=== PATIENT | male | born 1965 | race Caucasian/White ===

== ENCOUNTER → 2019-02-02 | Outpatient (CLI) | payer BC, OTHER ==
[2019-02-02 16:41] LABS: CALCIUM 9.6 mg/dL (8.5-10.1); CREATININE 1.1 mg/dL (0.7-1.3); POTASSIUM 3.9 mmol/L (3.5-5.1)
--- NOTE | 2019-02-03 08:30 | EKG ---
[address] [address] ELECTROCARDIOGRAM REPORT Name: LISA SINGH Room #: REG IRINEO Ku#: [id number] ������������������ Admission: 02/02/19 ������������������ Attend Phys: Denisha Gray MD Discharge: ������������������ Date of : 61 Report #: [id number] ����������������������������������������������������������������� [id number] THIS REPORT FOR: //name// [facility] Test Date: 2019-02-02 Test Time: 16:09:59 Pat Name: LISA SINGH Department: Room: Gender: [employer] Architect: Katty ALAN : 1965 Requested By: Denisha Gray Order Number: [id number] MD: Lc Streeter Measurements Intervals [place] Rate: 65 P: 54 HI: 165 QRS: 52 QRSD: 98 T: 10 QT: 375 QTc: 390 Interpretive Statements Sinus rhythm No previous ECG available for comparison Electronically Signed On 02-03-2019 8:30:34 CDT by Lc Streeter [email or web address] ��������������������������������������������� <ELECTRONICALLY SIGNED> ���������������������������������������� By: Lc Streeter MD ��������������������������������������������� 02/03/19 0830 1609 [id number] Lc Streeter MD /KARIE
== END ==
LOC: CV 15:43
PROVIDERS: Anesthesiology
DX: Z01.810 Encounter for preprocedural cardiovascular examination (principal); I10 Essential (primary) hypertension; E87.79 Other fluid overload